=== PATIENT | male | born 1970 | race African-American/Black ===

== ENCOUNTER 2018-04-07 16:17 | Emergency (ER) | payer OTHER ==
[~2018-04-07] VITALS: Ht 170.2 cm; Wt 93.0 kg
[~2018-04-07 16:17] MED LIST: ATENOLOL-CHLOR1 EACH PO; CYCLOBENZAPRINE10 MG PO; DARVOCET-N 1001 EACH PO; IBUPROFEN 800800 MG PO; NITROQUICK0.4 MG SL
[2018-04-07 16:31] LABS: URINE BILIRUBIN NEGATIVE (Negative); URINE BLOOD NEGATIVE (Negative); URINE CLARITY CLEAR; URINE COLOR YELLOW; URINE GLUCOSE-RANDOM* NEGATIVE (Negative); URINE KETONES NEGATIVE (Negative); URINE LEUKOCYTES-REFLEX NEGATIVE (Negative); URINE NITRITE-REFLEX NEGATIVE (Negative); URINE PROTEIN (DIPSTICK) NEGATIVE (Negative); URINE UROBILINOGEN 0.2 E.U./dl (0.2-1.0)
[2018-04-07 17:14] LABS: ABSOLUTE NEUTROPHILS 3.9 thou/uL (1.4-8.2); BASOPHILS 0.5 % (0.0-2.0); EOSINOPHILS 0.9 % (0.0-3.0); HEMATOCRIT 43.9 % (42.0-52.0); HEMOGLOBIN 14.8 gm/dL (14.0-18.0); LYMPHOCYTES 39.4 % (24.0-44.0); MCH 26.7 pg (26.0-34.0); MCHC 33.7 g/dL (28.0-37.0); MCV 79.2 fL (80.0-100.0); MONOCYTES 4.7 % (1.0-8.0); PLATELET COUNT 275 thou/uL (150-400); POLYS 54.5 % (36.0-66.0); RBC 5.54 mil/uL (4.50-6.00); RDW 14.7 % (10.5-14.5); WBC 7.2 thou/uL (4.0-11.0)
[2018-04-07] MEDS ORDERED: NORCO 7.5-3251 EACH PO (17:20)
[2018-04-07] MEDS ORDERED: LIPITOR80 MG PO (17:20)
[2018-04-07] MEDS ORDERED: AMLODIPINE BESY10 MG PO (17:20)
[2018-04-07] MEDS ORDERED: TOPROL XL100 MG PO (17:21)
[2018-04-07] MEDS ORDERED: DIOVAN320 MG PO (17:21)
[2018-04-07 17:22] LABS: CALCIUM 8.9 mg/dL (8.5-10.1); CREATININE 1.2 mg/dL (0.7-1.3); POTASSIUM 4.1 mmol/L (3.5-5.1)
[2018-04-07 17:28] LABS: ALBUMIN 4.1 g/dL (3.4-5.0); TOTAL BILIRUBIN 0.3 mg/dL (<0.1-1.0)
[2018-04-07] MEDS ORDERED: ONDANSETRON HCL4 M2 PO (18:25)
[2018-04-07] MEDS ORDERED: MOBIC7.5 MG PO (18:25)
[2018-04-07] MEDS ORDERED: MIRALAX17 GM PO (18:25)
[2018-04-07 18:48] VITALS: BP 125/83
== END 2018-04-07 18:58 | disposition home or self-care (01) ==
LOC: ER 16:17
PROVIDERS: Emergency Medicine; Physician Assistant
DX: R10.9 Unspecified abdominal pain (principal); R11.2 Nausea with vomiting, unspecified; R14.0 Abdominal distension (gaseous); I10 Essential (primary) hypertension; E11.9 Type 2 diabetes mellitus without complications; E78.00 Pure hypercholesterolemia, unspecified